=== PATIENT | male | born 1995 | race Caucasian/White ===

== ENCOUNTER 2018-07-22 23:24 | Emergency (ER) | payer OTHER ==
[~2018-07-22] VITALS: Ht 182.9 cm; Wt 81.8 kg
[2018-07-22 23:25] VITALS: BP 140/88
[2018-07-23 02:08] LABS: BASO % 0.1 % (0.0-1.0); EOS % 0.1 % (0.0-3.0); HEMATOCRIT 44.7 % (42.0-52.0); HEMOGLOBIN 15.5 g/dl (13.5-17.5); LYMPH % 13.7 % (24.0-44.0); MEAN CORPUSCULAR HEMOGLOBIN 30.2 pg (27.0-33.0); MEAN CORPUSCULAR HGB CONC 34.7 g/dl (32.0-36.5); MEAN CORPUSCULAR VOLUME 87.1 fl (80.0-96.0); MONO # 0.6 10^3/uL (0.0-0.8); MONO % 4.1 % (0.0-5.0); NEUTROPHILS % 81.5 % (36.0-66.0); PLATELET COUNT, AUTOMATED 178 10^3/uL (150-450); RED BLOOD COUNT 5.13 10^6/uL (4.30-6.10); WHITE BLOOD COUNT 14.8 10^3/uL (4.0-10.0)
[2018-07-23] MEDS ORDERED: KETOROLAC 60 MG/2 ML VIAL (J1885) IM ONE (03:00)
[2018-07-23 03:08] LABS: BLOOD UREA NITROGEN 20 MG/DL (7-18); CARBON DIOXIDE LEVEL 27 MEQ/L (21-32); CHLORIDE LEVEL 105 MEQ/L (98-107); CREATININE FOR GFR 1.13 MG/DL (0.70-1.30); GLOMERULAR FILTRATION RATE > 60.0 (>60); GLUCOSE, FASTING 103 MG/DL (70-100); POTASSIUM SERUM 4.1 MEQ/L (3.5-5.1); SODIUM LEVEL 137 MEQ/L (136-145)
--- NOTE | 2018-07-23 03:10 | REPVR ---
EXAM: CT Maxillofacial Without Contrast EXAM DATE/TIME: 07/23/2018 1:37 AM CLINICAL HISTORY: 22 years old, male; Face pain; Patient HX: Post op teeth; Possible left maxilla FX post op TECHNIQUE: Imaging protocol: Axial computed tomography images of the face without intravenous contrast. Coronal and sagittal reformatted images were created and reviewed. Radiation optimization: All CT scans at this facility use at least one of these dose optimization techniques: automated exposure control; mA and/or kV adjustment per patient size (includes targeted exams where dose is matched to clinical indication); or iterative reconstruction. COMPARISON: No relevant prior studies available. FINDINGS: Orbits: The globes and orbits are intact and normal in appearance. Mastoid air cells: Normal. No mastoid effusion. Auditory system: The middle ear spaces are clear. Sinuses: There is mild mucosal thickening is in the left maxillary sinus. The rest of the sinuses are clear. No air-fluid levels are noted in the sinuses. Bones/joints: No fracture or dislocation is noted. The temporomandibular joints are unremarkable. Dental: The left upper first and second premolars are absent and dental hardware is noted in the location of these teeth, with a radiolucency in the maxillary alveolar ridge surrounding the dental hardware that is likely related to a recent dental extraction. All of the wisdom teeth are absent. The rest of the teeth are intact. No dental caries are noted. Oropharynx: There are punctate calcifications in the palatine tonsils, which represent palatine tonsilloliths and are the sequela of prior infection and/or inflammation. Submandibular/Parotid glands: The parotid glands and submandibular glands are unremarkable. Soft tissues: There is soft tissue swelling, edema, hemorrhage, and foci of gas in the left side of the face predominantly in the left cheek and around the left side of the mandible. IMPRESSION: 1. No fracture or dislocation of the facial bones. 2. Soft tissue swelling, edema, hemorrhage, and foci of gas in the left side of the face. Electronically signed by: Brennen Turcios On 07/23/2018 03:10:17 AM
== END 2018-07-23 03:33 | disposition home or self-care (01) ==
LOC: M ED 23:24
DX: T81.89XA Other complications of procedures, not elsewhere classified, initial encounter (principal); Y92.9 Unspecified place or not applicable; Y93.9 Activity, unspecified; Z98.818 Other dental procedure status
CPT/HCPCS: 70486; 80048; 85025; 96372; 99284; J1885